=== PATIENT | male | born 1995 | race Two or more races ===

== ENCOUNTER 2020-02-28 00:29 | Emergency (ER) | payer OTHER ==
[~2020-02-28] VITALS: Ht 175.3 cm; Wt 81.6 kg
[2020-02-28] MEDS ORDERED: TETANUS-DIPTH-ACEL PERTUSSIS 0.5ML SYR Tdap IM ONE (02:30)
[2020-02-28 03:58] VITALS: BP 135/67
== END 2020-02-28 04:02 | disposition home or self-care (01) ==
LOC: ER 00:34
DX: S51.012A Laceration without foreign body of left elbow, initial encounter (principal); S61.412A Laceration without foreign body of left hand, initial encounter; W25.XXXA Contact with sharp glass, initial encounter; Y93.89 Activity, other specified; Y92.89 Other specified places as the place of occurrence of the external cause; Y99.8 Other external cause status
CPT/HCPCS: 12002; 73070; 73100; 90471; 90715